=== PATIENT | male | born 1960 | race African-American/Black ===

== ENCOUNTER 2019-04-10 10:49 | Emergency (ER) | payer OTHER ==
[~2019-04-10] VITALS: Ht 175.3 cm; Wt 96.0 kg
[2019-04-10 10:54] VITALS: BP 139/94
== END 2019-04-10 13:00 | disposition home or self-care (01) ==
LOC: ER 12:21
DX: S21.212D Laceration without foreign body of left back wall of thorax without penetration into thoracic cavity, subsequent encounter (principal); E11.9 Type 2 diabetes mellitus without complications; I10 Essential (primary) hypertension; X58.XXXD Exposure to other specified factors, subsequent encounter
CPT/HCPCS: 99282

== ENCOUNTER 2019-04-15 12:11 | Emergency (ER) | payer OTHER ==
[~2019-04-15] VITALS: Ht 177.8 cm; Wt 95.0 kg
[2019-04-15 15:59] VITALS: BP 122/76
== END 2019-04-15 16:00 | disposition home or self-care (01) ==
LOC: ER 12:20
DX: S21.211D Laceration without foreign body of right back wall of thorax without penetration into thoracic cavity, subsequent encounter (principal); E11.9 Type 2 diabetes mellitus without complications; I10 Essential (primary) hypertension; X58.XXXD Exposure to other specified factors, subsequent encounter
CPT/HCPCS: 99281; Z7610